=== PATIENT | female | born 1980 | race Hispanic/Latino ===

== ENCOUNTER 2016-10-23 06:00 | Inpatient (IN) | payer MEDICAID ==
[~2016-10-23] VITALS: Ht 152.4 cm; Wt 74.4 kg
[2016-10-23 07:15] LABS: Mean Corpuscular Hemoglobin 32.5 pg (27.0-35.0); Mean Corpuscular Volume 93.8 fL (81-100)
[2016-10-23] MEDS ORDERED: RANI150T11 PO (09:14)
[2016-10-23] MEDS ORDERED: PREN1TAB87 PO (09:14)
[2016-10-23] MEDS ORDERED: Oxytocin 30 Units/500 mL LR 30 UNITS in IV Premix 1 EACH IV PRN ×2 (09:25→12:45)
[2016-10-23] MEDS ORDERED: Methylergonovine 0.2 mg/mL Inj IM PRN ×2 (09:25→12:45)
[2016-10-23] MEDS ORDERED: Oxytocin 10 Unit/mL Inj IM PRN ×2 (09:25→12:45)
[2016-10-23] MEDS ORDERED: Lactated Ringer's 1,000 ML IV PRN (09:25)
[2016-10-23] MEDS ORDERED: Sodium Chloride LOK Flush 10 mL Syringe IVFLUSH PRN (09:25)
[2016-10-23] MEDS ORDERED: Hemorrhage Kit, Post Partum XX ONE ×2 (09:25→12:45)
[2016-10-23] MEDS ORDERED: Carboprost 250 mCg/mL Inj IM PRN ×2 (09:25→12:45)
--- NOTE | 2016-10-23 09:30 | HP ---
[address] [address] HISTORY AND PHYSICAL PATIENT: DIANA JASSO : 1980 MR#: [id number] ADMIT: 10/23/2016 JOB ID: [id number] The patient admitted for a trial of labor after a , active labor. HISTORY OF PRESENT ILLNESS: The patient is a 36-year-old 4, para 2-0-1-2 at 40 weeks and 2 days gestational age by LMP, confirmed by 13 week ultrasound. Had her complicated with the followin. Primary low transverse 2006 for nonreassuring heart tracing followed by successful in 2011. The patient desires TOLAC and consents were signed in the office and confirmed again at admission. 2. Advanced maternal age. 3. Positive quad screen for Down syndrome with negative DNA testing and consult in the chart. 4. Abnormal 2 hour glucose test followed by a normal 3 hour GTT. No gestational diabetes with confirmed. 5. History of gastritis controlled with Zantac currently. 6. Allergic rhinitis. 7. Suspected gestational hypertension on admission. The patient had some elevated blood pressures. Systolic ranges are 142-135. Diastolic ranges are 92-86. All abnormal blood pressures are within two hours of admission. Will keep watching and monitoring blood pressures. Preeclampsia labs are within normal limits with the urine protein creatinine ratio of 0.04. The patient complaining of contractions. No vaginal bleeding. Reports movements. Started leaking some fluid upon admission, grossly ruptured on pelvic examination. PAST OBSTETRICAL HISTORY: 2006 additional primary low transverse at 41 weeks for nonreassuring heart tracing and meconium followed by spontaneous with no D and C. This was followed by successful in 2012 at 40 weeks with no complications and the current . PAST GYNECOLOGIC HISTORY: No history of abnormal Pap smears. No history of STDs. PAST MEDICAL HISTORY: 1. Gastritis. 2. Allergic rhinitis. 3. Pre diabetes. PAST SURGICAL HISTORY: section x1. ALLERGIES: No known drug allergies. MEDICATIONS: 1. vitamins. 2. Zantac b.i.d. SOCIAL HISTORY: Denied any alcohol consumption. Denied any drugs of abuse. Denied any cigarette smoking. FAMILY HISTORY: Family history of cirrhosis, alcoholism and diabetes. No twinning or congenital anomalies in the family. LABORATORIES: O-positive, antibody negative, rubella immune, serology nonreactive, hepatitis B surface antigen negative. HIV nonreactive. Gonorrhea/chlamydia cultures negative. GBS cultures negative. Preeclampsia labs on admission: H and H is 13.1 and 37.8. Platelets are 260. White blood count of 9. AST 19, ALT 16, creatinine is 0.38. BUN is 9. Urine protein creatinine ratio is 0.04, within normal limits. PHYSICAL EXAMINATION: The patient is alert, oriented x3. Vital signs are 142/86 for blood pressure, with blood pressure ranges of 142-135 systolic over 92-86 diastolic since admission. Pulse is 70, respirations are 20, temperature 36.6 degrees centigrade. Heart is regular rate and rhythm. Positive S1, S2. Lungs clear to auscultation bilaterally. Abdomen: Gravid uterus, nontender. No right upper quadrant tenderness. Lower extremities: No calf tenderness appreciated bilaterally. Deep tendon reflexes are 2+ upper, 2+ lower. No clonus. Cervical examination: 5 cm dilated cervix, 70% effaced, -3 station. Vertex presentation. Light meconium on examination. Grossly ruptured. heart tracing is showing a baseline of 135 beats per minute, positive accelerations, no decelerations, moderate variability, category 1 heart tracing. ASSESSMENT AND PLAN: 1. The patient is a 36-year-old 4, para 2-0-1-2 at 40 weeks and 2 days gestational age admitted for trial of labor after . Risks, benefits, alternatives discussed again and the previously signed consent was confirmed. 2. Category 1 heart tracing. Continue external monitoring. Will consider internal monitoring as needed. 3. GBS cultures negative. 4. Discussed intrapartum analgesia. The patient would prefer a natural . Anesthesia notified as well as independent film maker for light meconium and TOLAC.
[2016-10-23] MEDS ORDERED: fentaNYL-PF 50 mCg/mL 2 mL Inj ONE (12:14)
[2016-10-23] MEDS ORDERED: Lactated Ringer's 1,000 ML IV SCH (12:43)
[2016-10-23] MEDS ORDERED: Witch Hazel-Glycerin Pads TOPICAL PRN (12:45)
[2016-10-23] MEDS ORDERED: Benzocaine (Dermoplast) 20% 60 Gm Spray TOPICAL PRN (12:45)
[2016-10-23] MEDS ORDERED: LANOlin HPA 7 Gm Ointment TOPICAL PRN (12:45)
[2016-10-23] MEDS ORDERED: oxyCODONE-Acetamin 5-325 mg Tablet PO PRN (12:45)
--- NOTE | 2016-10-23 14:06 | OP ---
[address] [address] OPERATIVE REPORT PATIENT: DIANA JASSO : 1980 MR#: [id number] ADMIT: 10/23/2016 JOB ID: [id number] DELIVERY NOTE: DATE OF DELIVERY: 10/23/2016 PREOPERATIVE DIAGNOSIS(ES): A 36-year-old, 4, para 2-0-1-2 at 40 weeks and 2 days gestational age by last menstrual period, confirmed by 13 week ultrasound, prior section. Opted for vaginal after section. Admitted with spontaneous labor. Progressed spontaneously to fully dilated, +3 station. POSTOPERATIVE DIAGNOSIS(ES): A 36-year-old, 4, para 2-0-1-2 at 40 weeks and 2 days gestational age by last menstrual period, confirmed by 13 week ultrasound, prior section. Opted for vaginal after section. Admitted with spontaneous labor. Progressed spontaneously to fully dilated, +3 station. PROCEDURE: Vaginal after section. SURGEON: Munira Calderon MD ANESTHESIA: None. ESTIMATED BLOOD LOSS: 300 cc. COMPLICATIONS: 1 minute shoulder dystocia. The following maneuvers were used: 1. Dayan. 2. Robison's, failed. 3. Suprapubic pressure. The dystocia lasted for 1 minute. Maternal pushing efforts were coached during the entire time. No traction was performed upon the head at any point. FINDINGS: 1. A single viable male with Apgars 9/9, weight of 3708 g. DETAILS OF PROCEDURE: Patient started to push efficiently. had delivered in left occiput anterior position. The shoulder dystocia was noted. OB team notified. Time started, 1st maneuver used was Dayan' position; failed to deliver the anterior shoulder. Then, the right surgeon's hand was introduced in the patient's vagina and anterior shoulder was noted to be the right shoulder of the baby. Robison's maneuver was performed; still failed to deliver the anterior shoulder. This was followed by suprapubic pressure and this released the anterior shoulder. Maternal pushing efforts were coached during the entire time. No traction was performed upon the head. Shoulder released followed by the rest of the body. Cord clamped and cut. Baby handed off to waiting welder apprentice arc. Placenta followed spontaneously and upon inspection, it was noted to be intact with three-vessel cord marginally inserted. Inspection of the perineum revealed no perineal lacerations. Inspection of the cervix revealed that the cervix was noted to be at a lower level then usual anatomically, so using two right angle retractors and sponge forceps, the cervix was inspected circumferentially and a 2 cm cervical laceration was found at 11 o'clock position with minimal to moderate bleeding. This was repaired with a continuous locked fashion of 2-0 Vicryl suture. Good hemostasis assured. The patient received 100 mg IV fentanyl before the repair of the laceration. Good hemostasis assured. Firm uterine fundus at the end of the procedure. Mom and baby recovering in stable condition in Labor and Delivery room. Dr. Calderon was present and scrubbed for the entire procedure. DATE OF SURGERY:
[2016-10-23] MEDS: Ascorbic Acid 500 mg Tablet PO SCH (18:04)
[2016-10-24 06:52] LABS: Mean Corpuscular Hemoglobin 32.4 pg (27.0-35.0); Mean Corpuscular Volume 95.7 fL (81-100)
[2016-10-24] MEDS: Ascorbic Acid 500 mg Tablet PO SCH (08:51)
--- NOTE | 2016-10-24 12:43 | PCM.DIOB ---
Obstetrical Disch Instruction Date of Service: Oct 24, 2016 Dates of Hospitalization Date of Hospital Admission Oct 23, 2016 at 07:52 Providers Admitting Physician: Munira Calderon MD Primary Care Physician: Lynette Yeager MD Attending Physician: Munira Calderon MD Discharge Diagnosis Discharge Diagnosis day # 1 S/P . Problems: Diet Discharge Diet: No restrictions Activity Discharge Activity-General: Pelvic Rest for 6 weeks, No lifting >10 pounds for 4-6 weeks Dressing and Incisional Care Hygiene: May shower Follow Up Plan Follow-up Provider (F9): Munira Calderon MD Follow-up appointment: Weeks (2) Call your provider for: Fever or Chills, Shortness of breath, Heavy vaginal bleeding, Other (excessive pain not controlled with pain medications.) Munira Calderon MD Oct 24, 2016 12:43
[2016-10-24] MEDS ORDERED: DOCU-41 PO (12:44)
[2016-10-24] MEDS ORDERED: PREN1TAB87 PO (12:44)
[2016-10-24] MEDS ORDERED: IBUP-1827 PO (12:44)
--- NOTE | 2016-10-24 13:20 | DIS ---
[address] [address] DISCHARGE SUMMARY PATIENT: DIANA JASSO : 1980 MR#: [id number] ADMIT: 10/23/2016 JOB ID: [id number] DIS: 10/24/2016 ADMISSION DIAGNOSIS: A 36-year-old 4, para 2-0-1-2 at 40 weeks 2 days gestational age admitted for a trial of labor after . Admitted in active labor. DISCHARGE DIAGNOSIS: day #1, 4, para 3-0-1-3, day #1 status post successful . HOSPITAL COURSE: For further details, please refer to the fully dictated notes. The patient upon admission had a few elevated blood pressures, none in the severe ranges, with gestational hypertension diagnosis was confirmed by elevated blood pressures that started at 6:10 a.m. of day of admission and was documented again at 1210 and 1316, and the gestational hypertension diagnosis was diagnosed. No signs and symptoms of preeclampsia. Preeclampsia laboratories were within normal limits. On admission blood pressures have been within acceptable ranges in the last 12 hours. Last elevated blood pressure was documented at 1316 yesterday at 144/83. All within normal limits blood pressures since that time. PHYSICAL EXAMINATION: Vital signs: 115/64 for blood pressure, respirations are 17, pulse is 64. Temperature 36.5 degrees centigrade. Heart is regular rate and rhythm. Positive S1, S2. Lungs clear to auscultation bilaterally. Abdomen firm. Uterine fundus palpated at the level of the umbilicus. Nontender. Positive bowel sounds. Perineum: No active bleeding. Lower extremities: No calf tenderness appreciated bilaterally. Deep tendon reflexes are 2+ upper, 2+ lower. No clonus. No right upper quadrant tenderness. H and H on day #1 was 11.2 and 33.1. DISCHARGE PLAN: The patient will be discharged home in a stable condition. Will followup with Dr. Calderon in the office in two weeks. Instructed to have nothing in the vagina for six weeks. No heavy lifting more than baby's weight. Instructed to call for fever, chills, severe abdominal pain not controlled with medication, heavy vaginal bleeding, headache, shortness of breath, chest pain, right upper quadrant abdominal pain or any other concerning symptoms. The patient be discharged home on the following medications: 1. Ibuprofen 600 mg every 6 hours. 2. vitamins once daily. 3. Colace 100 mg twice daily. The patient understood the discharge instructions. She will comply with her discharge plan.
[2016-10-24 13:59] VITALS: BP 115/65; PULSE 64; RESP 17
== END 2016-10-24 15:25 | disposition home or self-care (01) | DRG 542 ==
LOC: FBCO 06:00 → FBC 07:52
PROVIDERS: ADMIT Obstetrics & Gynecology; ATTEND Obstetrics & Gynecology
PROC: 10E0XZZ Delivery of Products of Conception, External Approach (ICD-10-PCS; principal; 2016-10-23)
PROC: 0UQC7ZZ Repair Cervix, Via Natural or Artificial Opening (ICD-10-PCS; 2016-10-23)
DX: O77.0 Labor and delivery complicated by meconium in amniotic fluid (principal); O13.4 Gestational [pregnancy-induced] hypertension without significant proteinuria, complicating childbirth; O71.3 Obstetric laceration of cervix; Z3A.40 40 weeks gestation of pregnancy; Z37.0 Single live birth; O34.211 Maternal care for low transverse scar from previous cesarean delivery; O66.0 Obstructed labor due to shoulder dystocia